=== PATIENT | male | born 1995 | race Caucasian/White ===

== ENCOUNTER 2024-12-13 12:22 | Emergency (ER) | payer OTHER, SELFPAY ==
[2024-12-13 12:30] VITALS: BP 139/67; PULSE 84; TEMP 37.1; O2SAT 98; BMI 28.9
--- NOTE | 2024-12-13 12:41 | PC.NURSE ---
pt states he's been SOB since wednesday. denies any other URI sx - denies any wheezing. lungs are clear. pt appears to not be in any distress at this time
--- OUTSIDE RECORDS SUMMARY | 2024-12-13 12:45 | XMS_ITS | Clinical Summary ---
Author Organization [facility] Address [address] [place] [address] Phone Care Team Providers Care Insolvency Practitioner Name Role Phone Deana Baird MD Primary Care Provider [phone] Social History Tobacco UseTypesPacks/DayYears UsedDateSmoking Tobacco: Never AssessedSex and Gender InformationValueDate RecordedSex Assigned at BirthNot on fileLegal Sex Male01/10/2022 8:05 PM ESTGender IdentityNot on fileSexual OrientationNot on file Plan of Treatment Not on file Care Teams Team MemberRelationshipSpecialtyStart DateEnd Date Deana Baird MD [address] [place] [address] PCP - Nmtadni33/29/21
--- OUTSIDE RECORDS SUMMARY | 2024-12-13 12:45 | XMS_ITS | Clinical Summary ---
Author Organization [facility] Address [address], [address] [place] [address] Care Team Providers Care Roughener Name Role Phone Curtis Khna MD Primary Care Provider + [phone] Allergies No known active allergies Medications MedicationSigDispense QuantityRefillsLast FilledStart DateEnd DateStatus lansoprazole (PREVACID) 30 MG capsule Indications:Hepatitis CTake 30 mg by mouth daily.Active Active Problems No known active problems Social History Tobacco UseTypesPacks/DayYears UsedDateSmoking Tobacco: NeverAlcohol UseStandard Drinks/WeekCommentsNo0 (1 standard drink = 0.6 oz pure alcohol)Sex and Gender InformationValueDate RecordedSex Assigned at BirthNot on fileLegal SexMale 03/27/2012 10:22 AM ESTGender IdentityNot on fileSexual OrientationNot on file Last Filed Vital Signs Vital SignReadingTime TakenCommentsBlood Izrawcox221/7204 11:16 AM EDT Msgle0444 11:16 AM NWACdblkotrrmi52.7 ??C (98.1 ??F)03/12/2011 1:38 PM ESTRespiratory Rate--Oxygen Saturation--Inhaled Oxygen Concentration--Mqcmia61.8 kg (167 lb)06/15/2011 11:16 AM LXFWlggqv351 cm (5' 7.32 )06/15/2011 11:16 AM EDT Body Mass Index25.9104 11:16 AM EDT Plan of Treatment Not on file Care Teams Team MemberRelationshipSpecialtyStart DateEnd Date Curtis Khan MD [facility] - General02/20/11
--- OUTSIDE RECORDS SUMMARY | 2024-12-13 12:45 | XMS_ITS | Clinical Summary ---
Author Organization [facility] Address [address] [place] [address] Care Team Providers Care Intake Counselor Name Role Phone Virgie Wilson MD, IBCLC Primary Care Provid er Deana Baird MD Unavailable [phone] Allergies Active AllergyReactionsCriticalityNoted DateCommentsDiphenhydramineUnknown 02/16/2023yclobenzaprineOther,Nczlnek6002/16/2023enicillin ZDzyvc8911/01/2023 Medications MedicationSigDispense QuantityRefillsLast FilledStart DateEnd DateStatus Naproxen Sodium (Aleve) 220 MG capsule every 12 (twelve) hoursActive pantoprazole (Protonix) 40 MG EC tablet Indications:Gastroesophageal reflux disease, unspecified whether esophagitis presentTake 1 tablet (40 mg) by mouth in the morning. Take before meals. Do not crush, chew, or split.. 90 tablet ctive Additional Information Patient not taking.Reported on 11/11/2024 methocarbamol (Robaxin) 500 MG tablet 5Active mometasone-formoterol (Dulera) 100-5 MCG/ACT inhaler Indications:Mild persistent asthma without complication (HCC)Inhale 2 puffs in the morning and 2 puffs before bedtime. Rinse mouth with water after use to reduce aftertaste and incidence of candidiasis. Do not swallow. 13 g 110506Active albuterol HFA (Ventolin HFA) 90 mcg/act inhaler Indications:Mild persistent asthma with acute exacerbation (HCC)Inhale 2 puffs every 4 (four) hours if needed for wmafdkev26/27/2025Active doxycycline (Vibramycin) 100 MG capsule Indications:Acute non-recurrent frontal sinusitisTake 1 capsule (100 mg) by mouth in the morning and 1 capsule (100 mg) before bedtime. Do all this for 7 days. Take with at least 8 ounces (large glass) of water, do not lie down for 30 minutes after. 14 capsule /05/2024Expired methylPREDNISolone (Medrol Dospak) 4 MG tablets Indications:Pharyngitis, unspecified etiology,Mild persistent asthma with acute exacerbation (HCC)Take as directed on package. 21 tablet Expired benzonatate (Tessalon) 100 MG capsule Indications:Cough in adultTake 1 capsule (100 mg) by mouth 3 (three) times a day as needed for cough Do not crush or chew. 42 capsule Expired Active Problems ProblemNoted DateDiagnosed DateEpidermal inclusion cyst04/05/2024enign lipomatous neoplasm of skin and subcutaneous tissue of left arm04/05/2024History of drug use12/01/2023 Assessment & Plan (07/12/2024 11:35 PM EDT): - Weight loss is likely attributable to the hepatitis C infection. - Previous test results from [facility] confirmed a positive diagnosis for hepatitis C, but thereis no evidence of permanent damage. - Advised to prioritize fruits, vegetables, and proteins in the diet to maintain muscle mass. - Encouraged to discuss any concerns or questions with the book agent during the next appointment. Tobacco use11/01/2023 Overview (11/01/2023): Chewing tobacco No longer smoking Had itching/dizziness with nicotine patch Gastroesophageal reflux hvezdgr8611/01/2023 Overview (05/11/2024): Reviewed use of antacid medication and/or diet modifications of decreasing caffeine, spicy foods, chocolate, and avoiding alcohol, tobacco, NSAIDs, and reducing citrus acids. Recommend taking PPI 30-60minutes before a meal, by itself, on an empty stomach. Overweight (BMI 25.0-29.9)11/01/20239835Uhgude04/16/2024 Overview (11/01/2023): W/ ADHD Rubs hands together Trouble reading and writing On disability Chronic migraine w/o aura w/o status migrainosus, not axlfvikvhxu12/02/2024 Overview (11/01/2023): Intermittent. Mild. <1 per month Alleviated with aleve PRN Mild persistent mtoiyr1002/16/2023 Overview (12/11/2023): Improved. Unable to acquire Air[employer] He hasn't needed albuterol nearly as frequently. Recommend he RTC if needing inhaler >2 times per week, at which time I would reconsider ICS-LABA. Patient expresses desire to stay with current regimen for now. Assessment & Plan (01/04/2024 5:40 AM EST): He has been experiencing episodes of shortness of breath and chest tightness for about a week and ahalf. These episodes occur randomly and are not relieved by his current albuterol inhaler. He reports that caffeine intake alleviates his symptoms. Physical examination was benign, with no wheezes orsignificant findings. Given the lack of relief from albuterol and the potential overuse, a prescription for Dulera inhaler (2 puffs twice daily) has been provided as a maintenance inhaler. He is advised to rinse his mouth after each use to prevent oral thrush. The albuterol inhaler will be kept on hand for use as needed. If the Dulera inhaler does not help, imaging studies will be considered to ensure lung health. Orders: mometasone-formoterol (Dulera) 100-5 MCG/ACT inhaler; Inhale 2 puffs in the morning and 2 puffs before bedtime. Rinse mouth with water after use to reduce aftertaste and incidence of candidiasis. Do not swallow.. Resolved Problems ProblemNoted DateDiagnosed DateResolved GqljPbierlqxy98 Encounters DateTypeDepartmentCare LlvcItalnrrppzv70/29/2025 2:40 [address] EDTTelemedicine [address] [address] Virgie Wilson MD, IBCLC Acute non-recurrent frontal sinusitis (Primary Dx); Mild persistent asthma with acute exacerbation (HCC); Gastroesophageal reflux disease, unspecified whether esophagitis present 11/13/2024amboo flowsheet [facility] [address] [place] [address] Virgie Wilson MD, IBCLC 11/13/20242726Qjmrcw41/27/2025 10:00 AM EDTOffice Visit [facility] [address] [place] [address] Clif, Ann, 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 Cough in adult (Primary Dx); Pharyngitis, unspecified etiology; Acute non-recurrent frontal sinusitis; Mild persistent asthma with acute exacerbation (HCC)11/11/20240007Adxgoy20/18/2025 Telephone [facility] [address] [place] [address] Virgie Wilson MD, IBCLC Med Refillfrom Last 3 Months Immunizations ImmunizationAdministration DatesNext DueDTP / HiB1994,1994, 1994DTaP, Kcwgwtuyvvq90/28/1999,04/20/1995Hep A, ped/adol, 2 dose 03/31/2010,04/30/2009Hep B, Adolescent or Drafmutye46/06/1995,1994, 1994HiB, gopyermysxp51/12/1995Influenza, injectable, quadrivalent, preservative free02/28/2018,10/27/2016Influenza, seasonal, /01/2005, 2004MMR06/12/1998,01/26/1995Meningococcal ACWY, bkxxxojayih18/16/2010 Meningococcal CCD4R3401/30/2008OPV06/12/1998,1994,1994,1994Tdap 12/15/2021,10/27/2016,04/21/20166190Jrdglbkml01/27/2008,12/16/1999 Family History Medical HistoryRelationNameCommentsDiabetesMaternal GrandmotherDiabetesMother Heart diseaseMotherHypertensionMotherDiabetesMother's SisterHeart diseaseSibling HypertensionSiblingRelationNameStatusCommentsMaternal GrandmotherMotherMother's SisterSibling Social History Tobacco UseTypesPacks/DayYears UsedDateSmoking Tobacco: FormerCigarettes0.32.4 Started: 07/28/2022Smokeless Tobacco: CurrentChew Tobacco Cessation:Ready to Q uit: Not Asked; Counseling Given: Not Answered Alcohol UseStandard Drinks/WeekCommentsYes0 (1 standard drink = 0.6 oz pure alcohol)Caffeine intake: >4 cups per daySocial Connection and Isolation Panel AnswerDate RecordedFrequency of Communication with Friends and FamilyNot on file 02/16/2023Frequency of Social Gatherings with Friends and FamilyNot on file 02/16/2023ttends Orthodoxy ServicesNot on file02/16/2023o you belong to any clubs or organizations such as orthodoxy groups, unions, fraternal or athletic shell ups, or school groups?No02/16/2023ttends Club or Organization MeetingsNot on file02/16/2023Marital StatusNot on file02/16/2023UDIT-CAnswerDate RecordedQ1: How often do you have a drink containing alcohol?2-4 times a month02/12/2023Q2: How many drinks containing alcohol do you have on a typical day when you are drinking?1 or Q3: How often do you have six or more drinks on one occasion?Never02/12/2023[facility] [place] [facility] Occup[facility] - Occupational Stress QuestionnaireAnswerDate RecordedDo you feel stress - tense, restless, nervous, or anxious, or unable to sleep at night because yourmind is troubled all the time - these days?Only a jpfnlx2302/16/2023Exercise Vital SignAnswerDate RecordedOn average, how many days per week do you engage in moderate to strenuous exercise (like a brisk walk)?0 days07/12/2024Minutes of Exercise per SessionNot on file07/12/2024Sex and Gender InformationValueDate RecordedSex Assigned at BirthNot on fileLegal MkcAcul7704/29/2022 11:22 PM EDTGender Identity Not on fileSexual OrientationNot on file Last Filed Vital Signs Vital SignReadingTime TakenCommentsBlood Jypfzvbv070/7809 10:00 AM EDT Jtoit4182/27/2025 10:00 AM XWRCubjytmoxza84.7 ??C (98.1 ??F)11/11/2024 10:00 AM EDTRespiratory Kacv833706/16/2024 1:26 PM EDTOxygen Kkukuweefv34%11/11/2024 10:00 AM EDTInhaled Oxygen Concentration--Xiiptt27.6 kg (182 lb)11/11/2024 10:00 AM WDUMfrowe068.3 cm (5' 9 )06/16/2024 1:26 PM EDTBody Mass Index26.8806/16/2024 1:26 PM EDT Plan of Treatment Health MaintenanceDue DateLast DoneCommentsPneumococcal Vaccine: Pediatrics (0 to 5 Years) and At-Risk Patients (6 to 64 Years) (1 of 2 - PCV)2013HPV Vaccines (1 - 3-dose SCDM series)2021OVID-19 Vaccine ( - season) 2024Influenza Vaccine (#1), 10/27/2016, 01/15/2005, Additional history existsDTaP/Tdap/Td Vaccines (9 - Td or Tdap)12/16/2031 12/15/2021, 10/27/2016, 04/21/2016, Additional history existsHepatitis B BpezhhkeZkzgqxzux90/06/1995, 1994, 1994HIB VaccinesCompleted 01/26/1995, 1994, 1994, Additional history existsIPV Vaccines Spsygwsvy74/28/1999, 1994, 1994, Additional history existsMMR ModbotjwUcjfheuja87/28/1999, 01/26/1995Varicella MwluxwfyMpjgmdvrj12/27/2008, 12/16/1999Meningococcal VaccineAged Out04/30/2009No longer eligible based on patient's age to complete this topicHepatitis A VbiuignkOveiksuzv70/14/2011, 04/30/2009Meningococcal B VaccineAged OutNo longer eligible based on patient's age to complete this topicRotavirus VaccinesAged OutNo longer eligible based on patient's age to complete this topic Procedures Procedure NamePriorityDate/TimeAssociated DiagnosisCommentsRAPID COVID 19 YVNTRVKKnwqjzh91/27/2025 10:34 AM EDT Pharyngitis, unspecified etiology from Last 3 Months Results * RAPID COVID 19 ANTIGEN (11/11/2024 10:34 AM EDT)ComponentValueRef RangeTest MethodAnalysis TimePerformed AtPathologist SignatureCOVID 19 RESULT OPnegative NegativeSpecimen (Source)Anatomical Location / LateralityCollection Method / VolumeCollection TimeReceived JeytYckgi10/27/2025 10:34 AM EDT Narrative Authorizing ProviderResult TypeResult StatusAnthreagan Christian DOPOINT OF CARE TEST ENTER/EDIT ORDERABLESFinal Result from Last 3 Months Insurance Care Teams Team MemberRelationshipSpecialtyStart DateEnd Virgie Wilson MD, IBCLC [address] [place], [place] [id number] [facility] - [facility] Deana Baird MD [address] [place] [address] PCP - [facility]11/16/23
--- NOTE | 2024-12-13 13:01 | ECG_ITS ---
[facility] Test Date: 2024-12-13 Pat Name: JUNIE STEPHENSON Department: Room: - Gender: Male Nascar Driver: : 1995 Requested By: [id number] Order Number: [id number] Reading MD: SARAH MCKEE Measurements Intervals [place] Rate: 70 P: 56 UT: 146 QRS: 51 QRSD: 92 T: 63 QT: 358 QTc: 379 Interpretive Statements 1100 Sinus rhythm 9110 normal ECG No previous ECG available for comparison Electronically Signed On 12-13-2024 18:40:38 EDT by SARAH MCKEE
--- NOTE | 2024-12-13 13:01 | XR_ITS ---
[facility] [place] [id number] Patient Name: JUNIE STEPHENSON MRN: [id number] date: 1995 Sex: M Assigned Patient Location: ER Current Patient Location: ED.MAIN Accession/Order Number: [id number] Exam Date: 12/13/2024 13:18 Report Date: 12/13/2024 13:56 At the request of: LEOLA GONZALEZ MD Procedure: XR chest 1V Single view chest: CLINICAL HISTORY: Pressure COMPARISON: None FINDINGS: The heart is normal in size. The lungs are clear. The pulmonary vasculature is normal. Mediastinum and hilar regions are unremarkable. No pleural effusions are seen. Visualized bones are intact. XR/XR chest 1V IMPRESSION: NO ACUTE PROCESS. Impression dictated by: Caden Hamilton Jr. DAlbertinaOAlbertina 12/13/2024 1:56 PM Dictation Location: [place] [address] Electronically authenticated by: [id number] Y Date: 12/13/2024 13:56
--- NOTE | 2024-12-13 13:03 | ED.GENADUL1 ---
HPI HPI - General Adult General Chief complaint: Shortness of Breath/Dyspnea Stated complaint: sob, weakness Time Seen by Provider: 12/13/24 12:57 Source: patient Mode of arrival: walk-in Limitations: no limitations History of Present Illness HPI narrative: 29-year-old male presents to the emergency department for left-sided chest pressure. He has had this for about 4 days. He does not complain of fever or cough. There is been no injury. He states he has been under a lot of stress recently and his fianc?e made him come to get checked. Symptom has been continuous. Related Data Home Medications ?Medication ?Instructions ?Recorded ?Confirmed albuterol 90 mcg/actuation aerosol 90 mcg inhalation .q4hr PRN 12/13/24 12/13/24 inhaler shortness of breath or wheezing Allergies Allergy/AdvReac Type Severity Reaction Status Date / Time cyclobenzaprine (From Allergy Severe arrhythmia Verified 12/13/24 12:28 Flexeril) Penicillins AdvReac Unknown Unknown Verified 12/13/24 12:28 Review of Systems ROS Narrative A ten point review of systems is negative except as noted above. PFSH PFSH Social History Little interest or pleasure in doing things: not at all Feeling down, depressed, or hopeless: not at all Exam Narrative Exam Narrative: Nurses note and vital signs reviewed General:The patient appears well and in no apparent distress.Patient is resting comfortably on cart. Skin:Warm, dry, no pallor noted.There is no rash noted. Head:Normocephalic, atraumatic Eye: Normal conjunctiva, no drainage Ears, Nose, Mouth, and Throat: oral mucosa is moist. Nares patent. Cardiovascular:Regular Rate and Rhythm Respiratory:Patient is in no distress, no accessory muscle use, lungs are clear to auscultation, no wheezing, rales or rhonchi. Breath sounds are equal bilateral. No bruise or rash on his chest wall Back:non-tender GI: Soft and nontender Musculoskeletal: The patient has no evidence of calf tenderness, no pitting edema, symmetrical pulses noted bilaterally Neurological:A&O, normal speech Psychiatric:Cooperative Constitutional Vital Signs, click to edit/add: Last Vital Signs Temp 98.8 F 12/13/24 12:30 Pulse 84 12/13/24 12:30 Resp 16 12/13/24 12:30 BP 139/67 12/13/24 12:30 Pulse Ox 98 12/13/24 12:30 O2 Del Method Room Air 12/13/24 12:30 Course Vital Signs Vital signs: Vital Signs Temperature 98.8 F 12/13/24 12:30 Pulse Rate 84 12/13/24 12:30 Respiratory Rate 16 12/13/24 12:30 Blood Pressure 139/67 12/13/24 12:30 Pulse Oximetry 98 12/13/24 12:30 Oxygen Delivery Method Room Air 12/13/24 12:30 Temperature 98.8 F 12/13/24 12:30 Pulse Rate 84 12/13/24 12:30 Respiratory Rate 16 12/13/24 12:30 Blood Pressure 139/67 12/13/24 12:30 Pulse Oximetry 98 12/13/24 12:30 Oxygen Delivery Method Room Air 12/13/24 12:30 Medical Decision Making MDM Narrative Medical decision making narrative: His workup here is negative. He reports he has been under a lot of stress recently. At this point I do not suspect acute coronary syndrome. Treatment diagnosis and follow-up were discussed with the patient. Differential Diagnosis Differential Diagnosis: Musculoskeletal chest pain, stress, myocardial infarction, pneumothorax Imaging Data Chest x-ray: My impression: No acute findings ECG Data Attestation: I personally reviewed and interpreted this ECG as follows: (EKG on my interpretation shows sinus rhythm with a rate of 70 and no acute change) Discharge Plan Discharge Chief Complaint: Shortness of Breath/Dyspnea Clinical Impression: Chest pain Patient Disposition: Home, Self-Care Time of Disposition Decision: 13:41 Condition: Good Mode of Transportation: Private Vehicle Prescriptions / Home Meds: No Action albuterol 90 mcg/actuation aerosol 90 mcg inhalation .q4hr PRN (Reason: shortness of breath or wheezing) Print Language: Kiswahili Instructions: Chest Pain (ED) Referrals: Physician,Non-Staff, MD [Primary Care Provider] - 1 week
== END 2024-12-13 13:50 | disposition home or self-care (01) ==
PROVIDERS: Emergency Provider Emergency Medicine
DX: R07.9 Chest pain, unspecified (principal)
CPT/HCPCS: 71045; 93005; 99284